=== PATIENT | female | born 1965 | race Caucasian/White ===

== ENCOUNTER 2017-09-26 02:38 | Emergency (ER) | payer OTHER ==
[2017-09-26 02:45] VITALS: BP 150/108; PULSE 75; RESP 18; TEMP 98.1; O2SAT 97
[2017-09-26] MEDS ORDERED: AMOXICILLIN 250 MG PREPACK#4 BTL TAKEHOME ONE (02:59)
[2017-09-26] MEDS ORDERED: PROPARACAINE 0.5% 15 ML OPHT DROP OP ONE (03:00)
--- NOTE | 2017-09-26 03:01 | EDPHY ---
H & P Stated Complaint: r ear pain Time Seen by Provider: 09/26/17 02:49 HPI/ROS: HPI The patient presents with right ear pain which has been present since about 2: 00 a.m. When it woke her from sleep. The pain is achy, constant, associated with slight decrease in hearing. She has been sick for the last few days with a sore throat. She has not had a fever. She has no prior history of ear infection. She has no drainage from the ear.. REVIEW OF SYSTEMS Constitutional: No fever, no chills. Eyes: No discharge. ENT: Positive for sore throat. Cardiovascular: No chest pain, no palpitations. Respiratory: No cough, no shortness of breath. Gastrointestinal: No abdominal pain, no vomiting. Genitourinary: No hematuria. Musculoskeletal: No back pain. Skin: No rashes. Neurological: No headache. PMHx: Hypertension, hyperlipidemia Soc Hx: Lives at home with family PHYSICAL General Appearance: Alert, no distress Eyes: Pupils equal and round no pallor or injection ENT, Mouth: Right TM is bulging and erythematous, there is mild tragal tenderness, there is no mastoid tenderness Mucous membranes moist, posterior pharynx is unremarkable Respiratory: There are no retractions, lungs are clear to auscultation Cardiovascular: Regular rate and rhythm Neurological: A&O, moves all extremities Skin: Warm and dry, no rashes Musculoskeletal: Neck is supple non tender Extremities: symmetrical, full range of motion Psychiatric: Patient is oriented X 3, there is no agitation Source: Patient Exam Limitations: No limitations - Personal History LMP (Females 10-55): Hysterectomy Current Tetanus/Diphtheria Vaccine: Yes Current Tetanus Diphtheria and Acellular Pertussis (TDAP): Yes - Medical/Surgical History Hx Asthma: No Hx Chronic Respiratory Disease: No Hx Diabetes: No Hx Cardiac Disease: No Hx Renal Disease: No Hx Cirrhosis: No Hx Alcoholism: Yes Hx HIV/AIDS: No Hx Splenectomy or Spleen Trauma: No Other PMH: Hypertension, hypercholesterolemia, hypothyroidism - Social History Smoking Status: Never smoked Constitutional: Initial Vital Signs Temperature (C) 36.7 C 09/26/17 02:41 Heart Rate 75 09/26/17 02:41 Respiratory Rate 18 09/26/17 02:41 Blood Pressure 150/108 H 09/26/17 02:41 O2 Sat (%) 97 09/26/17 02:41 O2 Delivery Mode Room Air Allergies/Adverse Reactions: No Known Allergies Allergy (Unverified 03/24/15 20:45) Home Medications: Medication Instructions Recorded Levothyroxine Sodium [Synthroid] 0 mcg PO 03/24/15 Metoprolol Tartrate [Lopressor] 0 mg PO BID 03/24/15 SIMVASTATIN 0 mg PO 03/24/15 Amoxicillin Trihydrate [Amoxil] 500 mg PO Q12H 7 Days cap 09/26/17 Calcium + D Soft Chewable Tab 09/26/17 Medical Decision Making Differential Diagnosis: 52-year-old female presents with 1 day of right-sided ear pain in the setting of sore throat for the last several days. On exam, she has right-sided otitis media without any evidence of tympanic membrane perforation. I have also considered otitis externa and viral type syndrome. In the emergency department, patient was given a dose of amoxicillin and proparacaine drops for ear pain. She will be discharged home with a 1 week course of amoxicillin. Departure - Departure Disposition: Home, Routine, Self-Care Clinical Impression: Acute otitis media Qualifiers: Otitis media type: suppurative Laterality: right Recurrence: not specified as recurrent Spontaneous tympanic membrane rupture: without spontaneous rupture Qualified Code(s): H66.001 - Acute suppurative otitis media without spontaneous rupture of ear drum, right ear Condition: Good Instructions: Ear Infection (ED) Additional Instructions: I recommend you take Tylenol 650 mg every 6 hr as needed for pain. You can use the proparacaine 1-2 drops every 4 hr as needed for ear pain. If you're not feeling better in 1-2 days I recommend that you follow up with your primary care doctor. You should return to the emergency department if your worse in any way. Referrals: Aliyah Mckeon PA [Primary Care Provider] - As per Instructions Prescriptions: Amoxicillin Trihydrate [Amoxil] 500 mg PO Q12H 7 Days cap
== END 2017-09-26 03:14 | disposition home or self-care (01) ==
DX: H66.001 Acute suppurative otitis media without spontaneous rupture of ear drum, right ear (principal); I10 Essential (primary) hypertension